=== PATIENT | female | born 1970 | race Caucasian/White ===

== ENCOUNTER 2021-09-13 10:33 | Outpatient (RCR) | payer BC ==
[~2021-09-13 10:33] MED LIST: ALPR.5T PO; CEPH500T PO; LISD40CA3 PO
== END 2021-09-17 | disposition home or self-care (01) ==
LOC: EDBD → ONC 10:33
PROVIDERS: ATTEND Radiology Radiation Oncology
DX: Z51.0 Encounter for antineoplastic radiation therapy (principal); D05.11 Intraductal carcinoma in situ of right breast; I10 Essential (primary) hypertension; Z98.890 Other specified postprocedural states
CPT/HCPCS: 77290; 77295; 77300; 77307; 77334; 77336; 77417; 99204

== ENCOUNTER 2021-09-30 07:43 | Outpatient (RCR) | payer BC | END 2021-10-17 | disposition home or self-care (01) | LOC: ONC 07:43 | PROVIDERS: ATTEND Radiology Radiation Oncology | DX: Z51.0 Encounter for antineoplastic radiation therapy (principal); D05.11 Intraductal carcinoma in situ of right breast; I10 Essential (primary) hypertension; Z98.890 Other specified postprocedural states | CPT/HCPCS: 77412; G0463; 77280; 77336 ==

== ENCOUNTER → 2021-10-29 | Outpatient (CLI) | payer BC ==
--- NOTE | 2021-10-29 14:20 | Diagnostic Imaging Report ---
INDICATION: Postmenopausal screening COMPARISON: Baseline FINDINGS: AP Spine L1-L4: [BMD (g/cm2): 1.167] [T-Score: -0.3] [Z-Score: -1.1] [BMD Previous: NA] [BMD % Change: NA] LT Hip Neck: [BMD (g/cm2): 0.854] [T-Score: -1.3] [Z-Score: -1.3] LT Hip Total: [BMD (g/cm2):0.890] [T-Score:-0.9] [Z-Score: -1.3] [BMD Previous: NA] [BMD % Change: NA] RT Hip Neck: [BMD (g/cm2):0.895] [T-Score:-1.0] [Z-Score:-1.0] RT Hip Total: [BMD (g/cm2):0.913] [T-score:-0.8] [Z-Score:-1.1] [BMD Previous:NA] [BMD % Change:NA] *Indicates significant change from prior examination based on 95% confidence level. World Health Organization criteria for BMD interpretation classify patients as Normal (T-score at or above -1.0), Osteopenic (T-score between -1.0 and -2.5) or Osteoporotic (T-score at or below -2.5). LIMITATIONS AND MODIFICATION: None. FRACTURE RISK (FRAX SCORE): The ten year probability of (%): Major Osteoporotic Fracture: [NA] Hip Fracture: [NA] IMPRESSION: 1. Osteopenia (Low bone mass). 2. Baseline examination. 3. See below National Osteoporosis Foundation guidelines on when to potentially initiate pharmacologic therapy. Based on the National Osteoporosis Foundation Guidelines, pharmacologic treatment should be initiated in any of the following, unless clinical conditions suggest otherwise: * Any patient with prior fragility fracture of the hip or vertebrae. A spine fracture indicates 5X risk for subsequent spine fracture and 2X risk for subsequent hip fracture. * Osteoporosis (T-score <-2.5). * Postmenopausal women and men age 50 and older with low bone mass/osteopenia (T-score between -1.0 and -2.5) by DXA and 10-year major osteoporotic fracture greater than 20% or a 10-year probability of hip fracture greater than 3%. These fracture risks are supplied above in the FRAX score, if applicable. * Clinician judgement and/or patient preferences may indicate treatment for people with 10-year fracture probabilities above or below these levels. Dictated by: Dictated on workstation # [id number]
== END ==
LOC: RAD 13:02
PROVIDERS: ATTEND Nurse Practitioner Adult Health
DX: Z13.820 Encounter for screening for osteoporosis (principal); M85.80 Other specified disorders of bone density and structure, unspecified site
CPT/HCPCS: 77080

== ENCOUNTER → 2022-08-25 | Outpatient (CLI) | payer BC, SELFPAY ==
--- NOTE | 2022-08-25 16:18 | Diagnostic Imaging Report ---
INDICATION: Obesity, hypertension, and family history of cardiac disease. EXAMINATION: The patient presents for coronary calcium scoring. TECHNIQUE: Noncontrast images of the heart were obtained followed by calculation of coronary calcium score. Dose reduction protocol was used. FINDINGS: The visualized portions of the mediastinum show no adenopathy. The visualized portions of the lung somers are clear; however, the entirety of the lungs is not included on this study. There is no pleural fluid. There are no significant coronary artery calcifications. Coronary calcium score was 0. IMPRESSION: Coronary calcium score was 0 with no significant coronary artery disease. Dictated by: Dictated on workstation # [id number]
== END ==
LOC: RAD 13:50
PROVIDERS: ATTEND Nurse Practitioner Family
DX: E66.9 Obesity, unspecified (principal); I10 Essential (primary) hypertension; Z82.49 Family history of ischemic heart disease and other diseases of the circulatory system
CPT/HCPCS: 75571

== ENCOUNTER 2023-03-27 20:42 | Inpatient (IN) | payer BC ==
[~2023-03-27] VITALS: Ht 172 cm; Wt 104.1 kg
--- NOTE | 2023-03-27 20:58 | ED Abdominal Pain ---
General Chief Complaint: Abdominal/GI Problems Stated Complaint: ABD PAIN Nursing Triage Note: PT TO RM 7 VIA WC WITH C/O RLQ PAIN , NAUSEA. REPORTS TEMP EARLIER TODAY, 98.6 DURING TRIAGE. Source of Information: Patient History of Present Illness Date Seen by Provider: Mar 27, 2023 Time Seen by Provider: 20:45 Initial Comments PT ARRIVES VIA POV FROM HOME, NEEDS WHEELCHAIR ON ARRIVAL C/O GENERALIZED ABDOMINAL PAIN AND CRAMPING SINCE LAST NIGHT, MUCH WORSE TODAY PAIN IS WORSE IN RLQ, AND AROUND 1700 SHE BEGAN HAVING SHARP SEVERE PAIN IN RLQ C/O NAUSEA, NO VOMITING HAD NORMAL BM TODAY URINATING NORMALLY TODAY HAS BEEN DRINKING LIQUIDS TODAY, TRIED TO EAT TOAST AN HOUR AGO HAD FEVER OF 100.5 TODAY, HAD TYLENOL AT 1700 NO PRIOR ABDOMINAL SURGERIES OR GI OR OR ADULT PSYCHIATRIST PROBLEMS PT IS MENOPAUSAL PT HAS HTN SHE WAS DX WITH BREAST CANCER IN 2020. SHE HAS HAD SURGERY AND RADIATION AND IS CURRENTLY IN REMISSION, MAINTAINED ON LETROZOLE PCP: JUAN HUGHES ONCOLOGIST: DR. HINTON Allergies and Home Medications Allergies Coded Allergies: codeine (Verified Allergy, Unknown, 08/19/21) Patient Home Medication List Home Medication List Reviewed: Yes Alprazolam (Xanax) 0.5 Mg Tablet, 1 TAB PO TID PRN, (Reported) Entered as Reported by: SARABJIT PHIPPS on 05/24/12 1605 Cephalexin (Cephalexin) 500 Mg Tablet, 500 MG PO BID Prescribed by: SEBASTIAN AUGUST on 09/08/16 0453 Lisdexamfetamine Dimesylate (Vyvanse) 40 Mg Capsule, 40 MG PO DAILY, (Reported) Entered as Reported by: SARABJIT PHIPPS on 05/24/12 1605 Review of Systems Review of Systems Constitutional: see HPI, fever Respiratory: No Symptoms Reported Cardiovascular: No Symptoms Reported Gastrointestinal: See HPI, Abdominal Pain; Denies Constipated, Denies Diarrhea; Nausea; Denies Vomiting Genitourinary: No Symptoms Reported Musculoskeletal: no symptoms reported Skin: no symptoms reported Psychiatric/Neurological: No Symptoms Reported Endocrine: No Symptoms Reported Hematologic/Lymphatic: No Symptoms Reported Past [id number] Hx Patient Social History Tobacco Use?: No Use of E-Cig and/or Vaping dev: No Substance use?: No Alcohol Use?: No Immunizations Up To Date Tetanus Booster (TDap): Unknown Seasonal Allergies Seasonal Allergies: No Past Medical History Surgeries: Yes (BREAST SURGERY FOR CANCER) Breast Respiratory: No Cardiac: Yes Hypertension Neurological: No Reproductive Disorders: Yes (BREAST CANCER) ADULT PSYCHIATRIST History: Menopausal Genitourinary: No Gastrointestinal: No Musculoskeletal: No Endocrine: No HEENT: No Cancer: Yes Breast Did You Recieve Any Treatments: Yes What Type of Treatment Did You: Radiation, Surgical Intervention BREAST CANCER DX 2020. S/P SURGERY AND RADIATION, IN REMISSION AND ON LETROZOLE OF 03/27/23 Psychosocial: Yes ADD/ADHD, Anxiety Integumentary: No Blood Disorders: No Adverse Reaction/Blood Tranf: No Family Medical History No Pertinent Family Hx Physical Exam Vital Signs Vital Signs - First Documented 03/27/23 20:51 Temp 37.0 Pulse 88 Resp 20 B/P (MAP) 114/84 (94) Pulse Ox 97 O2 Delivery Room Air Capillary Refill : Less Than 3 Seconds Height/Weight/BMI Height: 5'8.00" Weight: 180lbs. oz. 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, no motor/sensory deficits, alert, oriented x 3 Skin: warm/dry, pallor Focused Exam Lactate Level 03/27/23 20:53: Lactic Acid Level 1.45 Lactic Acid Level Laboratory Tests Test 03/27/23 20:53 Lactic Acid Level 1.45 MMOL/L (0.50-2.00) Progress/Results/Core Measures Results/Orders Lab Results Laboratory Tests Test 03/27/23 20:53 03/27/23 20:55 Range/Units Lactic Acid Level 1.45 0.50-2.00 MMOL/L White Blood Count 15.6 H 4.3-11.0 10^3/uL Red Blood Count 4.43 3.80-5.11 10^6/uL Hemoglobin 13.7 11.5-16.0 g/dL Hematocrit 40 35-52 % Mean Corpuscular Volume 90 80-99 fL Mean Corpuscular Hemoglobin 31 25-34 pg Mean Corpuscular Hemoglobin Concent 34 32-36 g/dL Red Cell Distribution Width 12.4 10.0-14.5 % Platelet Count 295 130-400 10^3/uL Mean Platelet Volume 10.6 9.0-12.2 fL Immature Granulocyte % (Auto) 0 % Neutrophils (%) (Auto) 68 42-75 % Lymphocytes (%) (Auto) 23 12-44 % Monocytes (%) (Auto) 9 0-12 % Eosinophils (%) (Auto) 0 0-10 % Basophils (%) (Auto) 0 0-10 % Neutrophils # (Auto) 10.5 H 1.8-7.8 10^3/uL Lymphocytes # (Auto) 3.6 1.0-4.0 10^3/uL Monocytes # (Auto) 1.4 H 0.0-1.0 10^3/uL Eosinophils # (Auto) 0.0 0.0-0.3 10^3/uL Basophils # (Auto) 0.1 0.0-0.1 10^3/uL Immature Granulocyte # (Auto) 0.1 0.0-0.1 10^3/uL Neutrophils % (Manual) 61 % Lymphocytes % (Manual) 29 % Monocytes % (Manual) 9 % Reactive Lymphocytes 1 % Platelet Estimate ADEQUATE Clumped Platelets SLIGHT Blood Morphology Comment NORMAL Erythrocyte Sedimentation Rate 15 0-30 MM/HR Sodium Level 138 135-145 MMOL/L Potassium Level 3.6 3.6-5.0 MMOL/L Chloride Level 105 98-107 MMOL/L Carbon Dioxide Level 21 21-32 MMOL/L Anion Gap 12 5-14 MMOL/L Blood Urea Nitrogen 11 7-18 MG/DL Creatinine 0.96 0.60-1.30 MG/DL Estimat Glomerular Filtration Rate 72 BUN/Creatinine Ratio 11 Glucose Level 149 H 70-105 MG/DL Calcium Level 9.8 8.5-10.1 MG/DL Corrected Calcium 9.7 8.5-10.1 MG/DL Total Bilirubin 1.6 H 0.1-1.0 MG/DL Aspartate Amino Transf (AST/SGOT) 15 5-34 U/L Alanine Aminotransferase (ALT/SGPT) 17 0-55 U/L Alkaline Phosphatase 122 40-136 U/L C-Reactive Protein High Sensitivity 10.24 H 0.00-0.50 MG/DL Total Protein 7.1 6.4-8.2 GM/DL Albumin 4.1 3.2-4.5 GM/DL Amylase Level 31 25-125 U/L Lipase 18 8-78 U/L My Orders Orders - AUDI OCAMPO DO Ed Iv/Invasive Line Start (03/27/23 20:49) Monitor-Rhythm Ecg Trace Only (03/27/23 20:49) Amylase (03/27/23 20:49) Cbc And Automated Diff (03/27/23 20:49) Comprehensive Metabolic Panel (03/27/23 20:49) Lipase (03/27/23 20:49) Ondansetron Injection (Ondansetron Inj (03/27/23 21:00) Ed Iv/Invasive Line Start (03/27/23 20:49) Lactated Ringers 1,000 Ml (Lactated Ring (03/27/23 21:00) Pantoprazole Injection (Pantoprazole Inj (03/27/23 21:00) Fentanyl Injection (Fentanyl Injection (03/27/23 21:00) Hs C Reactive Protein (03/27/23 20:58) Lactic Acid Analyzer (03/27/23 20:58) Blood Culture (03/27/23 20:58) Erythrocyte Sedimentation Rate (03/27/23 20:58) Ct Abdomen/Pelvis W (03/27/23 20:59) Manual Differential (03/27/23 20:55) Ketorolac Injection (Ketorolac Injection (03/27/23 21:30) Fentanyl Injection (Fentanyl Injection (03/27/23 21:30) Iohexol Injection (Omnipaque 350 Mg/Ml 1 (03/27/23 22:00) Received Contrast (Hold Metformin- Contr (03/27/23 22:00) Sodium Chloride Flush (Catheter Flush Sy (03/27/23 22:00) Ns (Ivpb) 100 Ml (Sodium Chloride 0.9% 1 (03/27/23 22:00) Piperacillin/Tazobactam (Piperacillin/Ta (03/27/23 22:15) Medications Given in ED Current Medications Medications Dose Ordered Sig/Emilie Route Start Time Stop Time Status Last Admin Dose Admin Fentanyl Citrate 50 mcg ONCE ONCE IVP 03/27/23 21:00 03/27/23 21:01 DC 03/27/23 21:05 50 MCG Fentanyl Citrate 50 mcg ONCE ONCE IVP 03/27/23 21:30 03/27/23 21:31 DC 03/27/23 21:35 50 MCG Iohexol 100 ml ONCE ONCE IV 03/27/23 22:00 03/27/23 22:01 DC 03/27/23 21:55 80 ML Ketorolac Tromethamine 30 mg ONCE ONCE IVP 03/27/23 21:30 03/27/23 21:31 DC 03/27/23 21:34 30 MG Lactated Ringer's 1,000 ml @ 0 mls/hr Q0M ONCE IV 03/27/23 21:00 03/27/23 21:01 DC 03/27/23 20:59 0 MLS/HR Ondansetron HCl 4 mg ONCE ONCE IVP 03/27/23 21:00 03/27/23 21:01 DC 03/27/23 20:59 4 MG Pantoprazole 40 mg ONCE ONCE IV 03/27/23 21:00 03/27/23 21:01 DC 03/27/23 21:05 40 MG Piperacillin Sod/ Tazobactam Sod 4.5 gm/Sodium Chloride 100 ml @ 200 mls/hr ONCE ONCE IV 03/27/23 22:15 03/27/23 22:44 DC 03/27/23 22:42 200 MLS/HR Sodium Chloride 10 ml NEEDED PRN IV 03/27/23 22:00 03/27/23 21:56 10 ML Sodium Chloride 100 ml ONCE ONCE IV 03/27/23 22:00 03/27/23 22:01 DC 03/27/23 21:56 80 ML Vital Signs/I&O 03/27/23 20:51 Temp 37.0 Pulse 88 Resp 20 B/P (MAP) 114/84 (94) Pulse Ox 97 O2 Delivery Room Air 03/27/23 23:59 Intake Total 1100 ml Balance 1100 ml Blood Pressure Mean: 94 Progress Progress Note : Progress Note VITALS ON ARRIVAL: TEMP 37.0, HR 88, RR 20, BP 114/84, O2 SAT 97% ON ROOM AIR GIVEN: -IV FLUIDS -ZOFRAN -PROTONIX -FENTANYL -TORADOL -ZOSYN LABS: -CBC WITH WBC 15.6, OTHERWISE NORMAL -CMP WITH GLUCOSE 149, BILI 1.6, OTHERWISE NORMAL -SED RATE 15 -CRP 10.24 -LACTIC ACID 1.45 -UA--NO URINE IN ER CT WITH APPENDICITIS WITH FREE PELVIC FLUID, AND CHOLELITHIASIS NO DETERIORATION IN PT'S CONDITION DURING ER STAY SYMPTOMS IMPROVED AT TIME OF ADMIT. PT LOOKS AND FEELS MUCH BETTER AND COLOR IS NOW NORMAL. DISCUSSED TEST RESULTS, NEED FOR ADMIT AND SURGERY PLANNED FOR MORNING, AND PT IS AGREEABLE TO PLAN Diagnostic Imaging Comments CT ABDOMEN/PELVIS--PER RADIOLOGIST REPORT AT 2207 FINDINGS: There is some minimal scarring in the lung bases. The heart size is normal. The liver is normal in size without focal lesion. There is cholelithiasis. There is no biliary ductal dilatation. The distal esophagus and stomach are normal. Spleen is normal. The pancreas is unremarkable. The adrenal glands are unremarkable. The kidneys are normal. The aorta is nonaneurysmal. The bowel gas pattern is nonspecific. There appear to be appendicoliths within the appendix which is inflamed. There is free pelvic fluid. Uterus is normal. Bladder is normal. The osseous structures are unremarkable. IMPRESSION: 1. Findings compatible with acute appendicitis with a large appendicolith at the base of the appendix is well some moderate free pelvic fluid. 2. Cholelithiasis. 3. Minimal scarring in the lung bases. Departure Communication (Admissions) 2207--SPOKE WITH DR. FLOWERS, SURGEON, ACCEPTS PT FOR ADMIT. Impression Primary Impression: Appendicitis Additional Impressions: Cholelithiasis HTN (hypertension) Breast cancer Disposition: ADMITTED INPATIENT Condition: Improved Admissions Decision to Admit Reason: Admit from ER (General) Decision to Admit/Date: Mar 27, 2023 Time/Decision to Admit Time: 22:10 Departure-Patient Inst. Referrals: SVETLANA HUGHES APRN (PCP) Primary Care Physician ANGEL,LOCAL PHYSICIAN (Family) Primary Care Physician AUDI OCAMPO DO Mar 27, 2023 20:58
[2023-03-27] MEDS ORDERED: PANTOPRAZOLE INJECTION 40 MG VIAL IV ONE (21:00)
[2023-03-27] MEDS ORDERED: fentaNYL INJECTION 100 MCG/2 ML VIAL IVP ONE ×2 (21:00→21:30)
[2023-03-27] MEDS ORDERED: LACTATED RINGERS 1,000 ML 1,000 ML IV ONE (21:00)
[2023-03-27] MEDS ORDERED: ONDANSETRON INJECTION 4 MG/2 ML (SDV) IVP ONE (21:00)
[2023-03-27 21:01] LABS: BASOPHILS # (AUTO) 0.1 10^3/uL (0.0-0.1); BASOPHILS % (AUTO) 0 % (0-10); EOSINOPHILS % (AUTO) 0 % (0-10); HEMATOCRIT 40 % (35-52); HEMOGLOBIN 13.7 g/dL (11.5-16.0); LYMPHOCYTES # (AUTO) 3.6 10^3/uL (1.0-4.0); LYMPHOCYTES % (AUTO) 23 % (12-44); MEAN CORPUSCULAR HEMOGLOBIN 31 pg (25-34); MEAN CORPUSCULAR HGB CONC 34 g/dL (32-36); MEAN CORPUSCULAR VOLUME 90 fL (80-99); MEAN PLATELET VOLUME 10.6 fL (9.0-12.2); MONOCYTES # (AUTO) 1.4 10^3/uL (0.0-1.0); MONOCYTES % (AUTO) 9 % (0-12); NEUTROPHILS # (AUTO) 10.5 10^3/uL (1.8-7.8); NEUTROPHILS % (AUTO) 68 % (42-75); PLATELET COUNT 295 10^3/uL (130-400); WHITE BLOOD COUNT 15.6 10^3/uL (4.3-11.0)
[2023-03-27 21:24] LABS: LYMPHOCYTES % (MANUAL) 29 %; MONOCYTES % (MANUAL) 9 %; NEUTROPHILS % (MANUAL) 61 %
[2023-03-27 21:25] LABS: PLATELET CLUMPS SLIGHT; PLATELET ESTIMATE ADEQUATE; RBC MORPH NORMAL; REACTIVE LYMPHOCYTES 1 %
[2023-03-27 21:28] LABS: ALBUMIN 4.1 GM/DL (3.2-4.5); BILIRUBIN,TOTAL 1.6 MG/DL (0.1-1.0); CALCIUM 9.8 MG/DL (8.5-10.1); CREATININE SERUM 0.96 MG/DL (0.60-1.30); POTASSIUM 3.6 MMOL/L (3.6-5.0); TOTAL PROTEIN 7.1 GM/DL (6.4-8.2)
[2023-03-27] MEDS ORDERED: KETOROLAC INJ 30 MG/ML VIAL IVP ONE (21:30)
[2023-03-27] MEDS ORDERED: NS 100 ML (IVPB) BAG IV ONE (22:00)
[2023-03-27] MEDS ORDERED: CATHETER FLUSH 10 ML SYR IV PRN (22:00)
[2023-03-27] MEDS ORDERED: IOHEXOL 350 MG/ML 100 ML (OMNIPAQUE 350) VIAL IV ONE (22:00)
[2023-03-27] MEDS ORDERED: HOLD METFORMIN - RECEIVED CONTRAST 20 ML VIAL IV SCH (22:00)
--- NOTE | 2023-03-27 22:06 | Diagnostic Imaging Report ---
PROCEDURE: CT abdomen and pelvis with contrast. TECHNIQUE: Multiple contiguous axial images were obtained through the abdomen and pelvis after administration of intravenous contrast. Auto Exposure Controls were utilized during the CT exam to meet ALARA standards for radiation dose reduction. All CT scans use one or more of the following dose optimizing techniques: automated exposure control, MA and/or KvP adjustment based on patient size and exam type or iterative reconstruction. INDICATION: Abdominal pain and nausea. FINDINGS: There is some minimal scarring in the lung bases. The heart size is normal. The liver is normal in size without focal lesion. There is cholelithiasis. There is no biliary ductal dilatation. The distal esophagus and stomach are normal. Spleen is normal. The pancreas is unremarkable. The adrenal glands are unremarkable. The kidneys are normal. The aorta is nonaneurysmal. The bowel gas pattern is nonspecific. There appear to be appendicoliths within the appendix which is inflamed. There is free pelvic fluid. Uterus is normal. Bladder is normal. The osseous structures are unremarkable. IMPRESSION: 1. Findings compatible with acute appendicitis with a large appendicolith at the base of the appendix is well some moderate free pelvic fluid. 2. Cholelithiasis. 3. Minimal scarring in the lung bases. Dictated by: Dictated on workstation # [id number]
[2023-03-27] MEDS ORDERED: PIPERACILLIN/Tazobactam 4.5 GM in NS (IVPB) 100 ML 100 ML IV ONE (22:15)
[2023-03-27] MEDS ORDERED: ONDANSETRON INJECTION 4 MG/2 ML (SDV) IV PRN (23:45)
[2023-03-27 23:46] VITALS: BP 99/61
[2023-03-27] MEDS ORDERED: D5 1/2NS + KCL 20 MEQ/L 1000ML 1,000 ML IV ONE (23:51)
[2023-03-27] MEDS: D5 1/2NS + KCL 20 MEQ/L 1000ML 1,000 ML IV SCH (23:55)
[2023-03-28] VITALS (13 sets, daily range): BP systolic 92–110; BP diastolic 61–74
--- NOTE | 2023-03-28 00:05 | Progress Note-Pre Operative ---
Pre-Operative Progress Note Date of Available H&P: Mar 28, 2023 Date H&P Reviewed: Mar 28, 2023 Time H&P Reviewed: 12:30 History & Physical: No changes noted Pre-Operative Diagnosis: acute appendicitis SHANKAR FLOWERS MD Mar 28, 2023 00:05
[2023-03-28] MEDS ORDERED: HYDROcodone/ACETAMINOPHEN 7.5 MG/325 MG TABLET PO PRN (00:15)
[2023-03-28] MEDS: fentaNYL INJECTION 100 MCG/2 ML VIAL IV PRN ×2 (02:52→06:39)
--- NOTE | 2023-03-28 02:52 | HISTORY AND PHYSICAL ---
ATTENDING QUALITY ENGINEER MEDICAL DEVICE: Natalie Ponce APRN. HISTORY OF PRESENT ILLNESS: The patient is a 53-year-old female who presented to the emergency department with approximately a 36-hour history of abdominal pain. She reports that this is crampy in nature and was initially diffuse, however, became more localized towards the right lower abdominal quadrant and became more sharp in nature. She states that the pain worsened over time and she decided to seek medical attention. She reports nausea; however, no vomiting. She did have a bowel movement today, which was normal. No red blood per rectum, no dark tarry stools. She does not recall ever having these types of symptoms before in the past. A CT scan was performed, which did show inflammation of the appendix as well as two appendicoliths consistent with acute appendicitis. PAST MEDICAL HISTORY: History of breast cancer, hypertension, ADHD. PAST SURGICAL HISTORY: Breast lumpectomy and radiation. ALLERGIES: Codeine. MEDICATIONS: Alprazolam 0.5 mg t.i.d. p.r.n., cephalexin 500 mg b.i.d. Vyvanse 40 mg daily, letrozole daily. SOCIAL HISTORY: Negative smoke, negative alcohol. FAMILY HISTORY: Noncontributory. VITAL SIGNS: Temperature 36.5, blood pressure 99/61, pulse 88, respirations 18, pulse ox 92% on room air. REVIEW OF SYSTEMS: A well-nourished female, currently in no acute distress. She is not experiencing shortness of breath or difficulty breathing. No chest pain, palpitations, diaphoresis. Intermittent nausea, no vomiting, no diarrhea, constipation, no red blood per rectum, no dark tarry stools. She did have a mild fever at home. No recent inadvertent weight loss. All other review of systems negative. PHYSICAL EXAMINATION: CHEST: Clear. Good breath sounds bilaterally. HEART: Regular. No murmurs. EXTREMITIES: No lower extremity edema. Negative Homans sign. HEENT: No scleral icterus. No cervical lymphadenopathy. ABDOMEN: Soft, nondistended. There is pain in the right lower abdominal quadrant at McBurney's point with voluntary guarding, no rebound. SKIN: Warm, dry. LABORATORY DATA: WBC 15.6, hemoglobin 13.7, hematocrit 40, platelets 295. BUN 11, creatinine 0.96, total bilirubin 1.6. ASSESSMENT AND PLAN: A 53-year-old female with acute noncomplicated appendicitis. The natural history of appendicitis or of this disease process was explained to the patient including risks of worsening infection, sepsis and perforation. She is in full understanding of the risks and benefits of surgery and would like to proceed with a diagnostic laparoscopy and laparoscopic appendectomy, which we will schedule on this admission. Job ID: [id number] DocumentID: [id number] Dictated Date: 03/28/2023 00:11:40 Strategic Business Development Date: 03/28/2023 02:50:00 Dictated By: SHANKAR FLOWERS MD
[2023-03-28] MEDS: PIPERACILLIN/Tazobactam 4.5 GM in NS (IVPB) 100 ML 100 ML IV SCH ×4 (03:00→21:06)
[2023-03-28 03:17] LABS: BACTERIA,URINE NEGATIVE /HPF; BILIRUBIN,URINE NEGATIVE (NEGATIVE); CLARITY,URINE CLEAR; COLOR,URINE YELLOW; GLUCOSE, URINE (UA) NEGATIVE (NEGATIVE); HYALINE CASTS, URINE 0-2 /LPF; KETONES,URINE 1+ (NEGATIVE); LEUKOCYTE ESTERASE ,URINE NEGATIVE (NEGATIVE); NITRITE,URINE NEGATIVE (NEGATIVE); PROTEIN,URINE 1+ (NEGATIVE); RBC,URINE 0-2 /HPF; RED BLOOD CELL CASTS,URINE RARE /LPF; WBC,URINE RARE /HPF
[2023-03-28 05:02] LABS: BASOPHILS % (AUTO) 0 % (0-10); EOSINOPHILS % (AUTO) 0 % (0-10); HEMATOCRIT 38 % (35-52); HEMOGLOBIN 12.7 g/dL (11.5-16.0); LYMPHOCYTES # (AUTO) 0.6 10^3/uL (1.0-4.0); LYMPHOCYTES % (AUTO) 3 % (12-44); MEAN CORPUSCULAR HEMOGLOBIN 31 pg (25-34); MEAN CORPUSCULAR HGB CONC 33 g/dL (32-36); MEAN CORPUSCULAR VOLUME 92 fL (80-99); MEAN PLATELET VOLUME 11.1 fL (9.0-12.2); MONOCYTES % (AUTO) 6 % (0-12); NEUTROPHILS # (AUTO) 15.7 10^3/uL (1.8-7.8); NEUTROPHILS % (AUTO) 90 % (42-75); PLATELET COUNT 237 10^3/uL (130-400); WHITE BLOOD COUNT 17.4 10^3/uL (4.3-11.0)
[2023-03-28] MEDS ORDERED: LOSA50TA63 PO (05:13)
[2023-03-28 05:17] LABS: CALCIUM 8.8 MG/DL (8.5-10.1); CREATININE SERUM 0.9 MG/DL (0.60-1.30)
[2023-03-28] MEDS ORDERED: LETR2.5T6 PO (06:25)
[2023-03-28] MEDS: D5 1/2NS + KCL 20 MEQ/L 1000ML 1,000 ML IV SCH ×4 (06:27→23:23)
[2023-03-28] MEDS ORDERED: ASPI-999 PO (06:31)
[2023-03-28] MEDS: PANTOPRAZOLE INJECTION 40 MG VIAL IV SCH (08:07)
[2023-03-28] MEDS: KETOROLAC INJ 30 MG/ML VIAL IVP PRN ×3 (08:08→21:06)
[2023-03-28] MEDS ORDERED: LACTATED RINGERS 1,000 ML 1,000 ML IV PRN ×2 (08:45→11:30)
[2023-03-28] MEDS ORDERED: dexAMETHasone INJ 10 MG/ML 1 ML VIAL ONE (10:00)
[2023-03-28] MEDS ORDERED: GLYCOPYRROLATE INJ 0.2 MG/ML 2 ML VIAL ONE (10:00)
[2023-03-28] MEDS ORDERED: NEOSTIGMINE 1 MG/1ML 10 ML VIAL ONE (10:00)
[2023-03-28] MEDS ORDERED: ROCURONIUM 50 MG/5 ML VIAL IV ONE (10:00)
[2023-03-28] MEDS ORDERED: MIDAZOLAM INJ 2 MG/2 ML VIAL ONE (10:00)
[2023-03-28] MEDS ORDERED: LIDOCAINE PF 2% 5 ML VIAL ONE (10:00)
[2023-03-28] MEDS ORDERED: proPOfol INJECTION 200 MG/20 ML VIAL IV ONE (10:00)
[2023-03-28] MEDS ORDERED: ONDANSETRON INJECTION 4 MG/2 ML (SDV) ONE (10:00)
[2023-03-28] MEDS ORDERED: fentaNYL INJECTION 100 MCG/2 ML VIAL ONE (10:00)
[2023-03-28] MEDS ORDERED: LIDOCAINE 2% w/EPI 1:100,000 20 ML VIAL ONE (10:04)
[2023-03-28] MEDS ORDERED: HYDR-3817 PO (10:15)
[2023-03-28] MEDS ORDERED: ONDA-105 PO (10:15)
--- NOTE | 2023-03-28 10:15 | Discharge Inst-Surgical ---
D/C Lap Instructions-KIDO Reconcile Patient Problems Problems Reviewed?: Yes New, Converted, or Re-Newed RX: RX on Chart Follow Up Appt in 2 weeks Activity as tolerated No driving for 24 hours No driving while on pain medications Incentive Spirometry use every 2 hours while awake Regular Diet Symptoms to Report: Fever over 101 degree F, Nausea/Vomiting Infection Signs and Symptoms to report: Increased redness, Foul odor of wound, Increased drainage Bathing instructions: May shower Operative Area Clean/Dry; Keep incision clean/dry If any problems/questions: Contact your physician or go to Emergency Room GINNY GRIFFIN APRN Mar 28, 2023 10:15
[2023-03-28] MEDS ORDERED: ceFAZolin INJECTION 2,000 MG ONE (11:19)
[2023-03-28] MEDS ORDERED: ceFAZolin INJECTION 2,000 MG in NS (IVPB) 50 ML 50 ML IV ONE (11:30)
[2023-03-28] MEDS ORDERED: SEVOFLURANE (ULTANE) 15 ML INHAL SOLN ONE (12:01)
--- NOTE | 2023-03-28 12:02 | Progress Note-Post Operative ---
Post-Operative Progess Note Surgeon (s)/Trade Promotion Analyst (s) Surgeon SHANKAR FLOWERS MD Trade Promotion Analyst: anjana pacheco Pre-Operative Diagnosis acute appendicitis Post-Operative Diagnosis same with purulence pelvis. Procedure & Operative Findings Date of Procedure 03/28/23 Procedure Performed/Findings laparoscopic appendectomy Anesthesia Type get Estimated Blood Loss Estimated blood loss (mL): minimal Specimens/Packing Specimens Removed appendix SHANKAR FLOWERS MD Mar 28, 2023 12:02
--- NOTE | 2023-03-28 12:27 | Anesthesia-General Post-Op ---
General Patient Condition Mental Status/LOC: Same as Preop Cardiovascular: Satisfactory Nausea/Vomiting: Absent Respiratory: Satisfactory Pain: Controlled Complications: Absent Post Op Complications Complications None Follow Up Care/Instructions Patient Instructions None needed. Anesthesia/Patient Condition Patient Condition Patient is doing well, no complaints, stable vital signs, no apparent adverse anesthesia problems. No complications reported per nursing. TORIBIO MCCORMICK CRNA Mar 28, 2023 12:27
[2023-03-28] MEDS ORDERED: PROMETHAZINE INJ 25 MG/ML VIAL IVP ONE (12:30)
[2023-03-28] MEDS ORDERED: HYDROmorphone INJECTION 2 MG/ML VIAL IV ONE (12:30)
[2023-03-28] MEDS ORDERED: morphine INJ 10 MG/ML 1ML (SYR OR VIAL) IVP ONE (12:30)
[2023-03-28] MEDS ORDERED: MEPERIDINE INJ 50 MG/ML VIAL IVP ONE (12:30)
[2023-03-28] MEDS ORDERED: ONDANSETRON INJECTION 4 MG/2 ML (SDV) IVP PRN (12:30)
[2023-03-28] MEDS ORDERED: morphine INJ 10 MG/ML 1ML (SYR OR VIAL) ONE (12:34)
[2023-03-28] MEDS ORDERED: LACTATED RINGERS 1,000 ML 1,000 ML IV ONE (12:34)
--- NOTE | 2023-03-28 17:56 | OPERATIVE REPORT ---
DATE OF SERVICE: 03/28/2023 ATTENDING PRIMARY CARE PHYSICIAN: Natalie Ponce APRN PREOPERATIVE DIAGNOSIS: Acute appendicitis. POSTOPERATIVE DIAGNOSIS: Acute appendicitis with pelvic abscess. PROCEDURE: Laparoscopic appendectomy. SURGEON: Del Jenkins MD IRONER SOCK: Ramírez Newberry APRN ANESTHESIA: General endotracheal. ESTIMATED BLOOD LOSS: Minimal. FINDINGS: Purulence within the pelvis as well as fibirino-exudative rind around the appendix. No perforation. DISPOSITION: The patient tolerated the procedure well. INDICATIONS: The patient is a 53-year-old female who presented to the Emergency Department with an approximately 36-hour history of abdominal pain. This was crampy in nature, initially diffuse, however, became more localized towards the right lower abdominal quadrant and became more severe in nature. She also developed nausea; however, no vomiting. She also feels that she did have a fever at home. A CT scan was performed, which did show inflammation of the appendix as well as two appendicoliths consistent with acute appendicitis. DESCRIPTION OF PROCEDURE: The patient was brought to the operating room, laid supine on the table. After adequate IV pain and sedative medications and general endotracheal intubation, the abdomen was prepped and draped in standard surgical fashion. Lidocaine 2% with epinephrine was used to anesthetize the overlying skin in the left upper abdominal quadrant and a transverse skin incision made using a #15 blade. An 0 silk suture was applied to the medial aspect of the incision for retraction and a Veress needle inserted with a low opening pressure of 0 mmHg and the abdomen was then insufflated to 15 mmHg pressure. The Veress needle removed and a 5-mm trocar placed followed by a 5-mm 45-degree angle laparoscope visualized the peritoneal cavity. A 4-quadrant abdominal exploration was performed. There was purulence within the pelvis as well as a fibrinopurulent rind around the appendix, however, no gross perforation. Under direct visualization, we then proceeded to place a supraumbilical 10-mm port after the skin and peritoneal lining were anesthetized using 0.5% Marcaine with epinephrine and a transverse skin incision made using a #15 blade. In a similar manner, a suprapubic 5-mm port was placed. The patient was then placed in Trendelenburg position. The appendix was retracted towards the anterior abdominal wall and a window created between the mesoappendix and the base of the appendix at the at the cecum using a [place] dissector. The appendix was then stapled and transected at the cecal base using a NERISSA 45-mm stapler with a 2.5-mm thickness load. The mesoappendix was then stapled and transected with the same stapler with a 2.0 mm thickness reload with visualization of good hemostasis. The appendix was removed through the 10-mm port site using an EndoCatch bag. The pelvis and the peritoneum were then copiously irrigated and suctioned out. A 19-Moroccan Maor-Epperson drain was then placed into the pelvis and around the previously excised appendix and brought out the left upper abdominal quadrant 5-mm port and sutured to the skin using 3-0 nylon interrupted suture. The 10-mm port site fascia and peritoneum were then closed under direct visualization using a Dank-Tracee device and 0 Vicryl suture. The abdomen was desufflated and remaining ports removed. All skin incisions were closed using 4-0 Monocryl running subcuticular sutures. Wounds were then cleaned and covered in Dermabond. The patient tolerated the procedure well. We will admit her back to the floor and continue with IV antibiotics. We will start a clear liquid diet and advance as tolerated. We will get repeat labs and if she is afebrile and is tolerating clears and has adequate pain control tomorrow, we will discharge her home and have her continue with oral antibiotics for 1 week. Job ID: [id number] DocumentID: [id number] Dictated Date: 03/28/2023 12:08:42 Heat Set Operator Date: 03/28/2023 17:54:00 Dictated By: DEL JENKINS MD
[2023-03-29] MEDS: KETOROLAC INJ 30 MG/ML VIAL IVP PRN ×2 (02:52→08:42)
[2023-03-29 03:06] VITALS: BP 108/70
[2023-03-29] MEDS: PIPERACILLIN/Tazobactam 4.5 GM in NS (IVPB) 100 ML 100 ML IV SCH (05:26)
[2023-03-29 07:16] VITALS: BP 118/72
[2023-03-29] MEDS: D5 1/2NS + KCL 20 MEQ/L 1000ML 1,000 ML IV SCH (07:31)
[2023-03-29] MEDS: PANTOPRAZOLE INJECTION 40 MG VIAL IV SCH (07:38)
[2023-03-29 08:11] LABS: BASOPHILS % (AUTO) 0 % (0-10); EOSINOPHILS % (AUTO) 0 % (0-10); HEMATOCRIT 33 % (35-52); LYMPHOCYTES % (AUTO) 7 % (12-44); MEAN CORPUSCULAR HEMOGLOBIN 32 pg (25-34); MEAN CORPUSCULAR HGB CONC 33 g/dL (32-36); MEAN CORPUSCULAR VOLUME 94 fL (80-99); MONOCYTES # (AUTO) 1.1 10^3/uL (0.0-1.0); MONOCYTES % (AUTO) 7 % (0-12); NEUTROPHILS # (AUTO) 12.9 10^3/uL (1.8-7.8); NEUTROPHILS % (AUTO) 86 % (42-75); PLATELET COUNT 220 10^3/uL (130-400); WHITE BLOOD COUNT 15.1 10^3/uL (4.3-11.0)
[2023-03-29 08:23] LABS: POTASSIUM 3.8 MMOL/L (3.6-5.0)
[2023-03-29 08:25] LABS: CALCIUM 8.9 MG/DL (8.5-10.1)
[2023-03-29 08:29] LABS: CREATININE SERUM 0.95 MG/DL (0.60-1.30)
[2023-03-29] MEDS ORDERED: diphenhydrAMINE 25 MG TABLET PO ONE (08:51)
[2023-03-29] MEDS ORDERED: diphenhydrAMINE 25 MG TABLET PO PRN (09:00)
[2023-03-29] MEDS ORDERED: TRM50T PO (09:53)
[2023-03-29] MEDS ORDERED: TORADOL PO (09:53)
--- NOTE | 2023-03-29 10:14 | Progress Note ---
Subjective Date Seen by a Provider: Mar 29, 2023 Time Seen by a Provider: 09:30 Subjective/Events-last exam Patient reports doing well. Minimal abdominal pain. No nausea or vomiting. Tolerating diet and reports that she has ambulated to the bathroom. Focused Exam Lactate Level 03/27/23 20:53: Lactic Acid Level 1.45 Objective Exam Vital Signs Date Time Temp Pulse Resp B/P (MAP) Pulse Ox O2 Delivery O2 Flow Rate FiO2 03/29/23 08:02 Room Air 03/29/23 07:16 36.9 85 16 118/72 (87) 98 Room Air 03/29/23 07:00 84 03/29/23 03:06 36.4 84 18 108/70 (83) 95 Room Air 03/29/23 01:00 80 03/28/23 23:20 36.9 77 16 98/66 (77) 94 Room Air 03/28/23 19:41 35.9 92 20 102/62 (75) 91 Room Air 03/28/23 19:10 Room Air 03/28/23 19:00 88 03/28/23 15:59 37.4 87 16 100/68 (79) 93 Room Air 03/28/23 13:26 36.2 99 20 105/70 (82) 95 Room Air 03/28/23 13:12 Room Air 03/28/23 13:00 37.3 19 104/67 (79) 97 Room Air 03/28/23 13:00 Room Air 03/28/23 13:00 106 03/28/23 12:50 17 97/67 (77) 97 Room Air 03/28/23 12:45 OxyMask 2.00 03/28/23 12:40 16 93/63 (73) 98 OxyMask 2.00 03/28/23 12:30 14 105/68 (80) 100 OxyMask 2.00 03/28/23 12:30 OxyMask 4.00 03/28/23 12:20 16 92/66 (75) 96 OxyMask 4.00 03/28/23 12:15 22 96/61 (73) 98 OxyMask 4.00 03/28/23 12:13 OxyMask 4.00 03/28/23 12:13 37.8 16 106/74 (85) 99 OxyMask 4.00 I & O 03/29/23 07:00 Intake Total 4900 ml Output Total 1815 ml Balance 3085 ml Capillary Refill : Less Than 3 Seconds General Appearance: No Apparent Distress, WD/WN Neck: Normal Inspection, Supple Respiratory: No Accessory Muscle Use, No Respiratory Distress Gastrointestinal: normal bowel sounds, soft, tenderness, other (Abdominal incisions C/D/I, left upper quadrant abdominal KAREN drain with mild purulent drainage in the bulb) Extremity: Normal Inspection, Normal Range of Motion Neurologic/Psychiatric: Alert, Oriented x3 Skin: Normal Color, Warm/Dry Results Lab Laboratory Tests 03/29/23 07:58: White Blood Count 15.1H, Red Blood Count 3.49L, Hemoglobin 11.0L, Hematocrit 33L , Mean Corpuscular Volume 94, Mean Corpuscular Hemoglobin 32, Mean Corpuscular Hemoglobin Concent 33, Red Cell Distribution Width 13.1, Platelet Count 220, Mean Platelet Volume 11.0, Immature Granulocyte % (Auto) 0, Neutrophils (%) (Auto) 86H, Lymphocytes (%) (Auto) 7L, Monocytes (%) (Auto) 7, Eosinophils (%) ( Auto) 0, Basophils (%) (Auto) 0, Neutrophils # (Auto) 12.9H, Lymphocytes # (Auto) 1.0, Monocytes # (Auto) 1.1H, Eosinophils # (Auto) 0.0, Basophils # (Auto) 0.0, Immature Granulocyte # (Auto) 0.1, Sodium Level 135, Potassium Level 3.8, Chloride Level 106, Carbon Dioxide Level 20L, Anion Gap 9, Blood Urea Nitrogen 10, Creatinine 0.95, Estimat Glomerular Filtration Rate 73, BUN/Creatinine Ratio 11, Glucose Level 131H, Calcium Level 8.9 Microbiology 03/28/23 MRSA Screen - Final, Complete MRSA not isolated 03/27/23 Blood Culture - Preliminary, Resulted Assessment/Plan Assessment/Plan Assess & Plan/Chief Complaint A 53 year old female with acute appendicitis who is s/p laparoscopic appendectomy with drain placement VSS tolerating diet and ambulating ok to [place] home with abx, pain, and nausea medications. Will have patient follow up in office on 04/03/23 GINNY GRIFFIN APRN Mar 29, 2023 10:14
== END 2023-03-29 10:21 | disposition home or self-care (01) | DRG 399 ==
LOC: EDUNIT# 20:42 → ER 20:44 → 4TH 23:14
PROVIDERS: ADMIT Surgery; ATTEND Surgery
PROC: 0W9G40Z Drainage of Peritoneal Cavity with Drainage Device, Percutaneous Endoscopic Approach (ICD-10-PCS; 2023-03-28)
PROC: 0DTJ4ZZ Resection of Appendix, Percutaneous Endoscopic Approach (ICD-10-PCS; principal; 2023-03-28 11:01)
DX: K35.33 Acute appendicitis with perforation, localized peritonitis, and gangrene, with abscess (principal); I10 Essential (primary) hypertension; F90.9 Attention-deficit hyperactivity disorder, unspecified type; Z85.3 Personal history of malignant neoplasm of breast; Z92.3 Personal history of irradiation; Z90.10 Acquired absence of unspecified breast and nipple; K80.20 Calculus of gallbladder without cholecystitis without obstruction
CPT/HCPCS: 36415; 74177; 80048; 80053; 81000; 82150; 83605; 83690; 85007; 85025; 85027; 85652; 86141; 87040; 87081